=== PATIENT | female | born 1970 | race African-American/Black ===

== ENCOUNTER 2023-10-21 15:02 | Emergency (ER) | payer OTHER, SELFPAY ==
--- NOTE | ~2023-10-21 | CT_ITS ---
EXAMINATION: CT brain wo con DATE: 10/22/2023 11:56 INDICATION: Altered mental status. TECHNIQUE: Computed tomography (CT) of the head was performed without intravenous contrast. The mA wa s adjusted according to patient size. Iterative reconstruction technique was employed. The dose-lengt h product was 605.33 mGy-cm. COMPARISON: None FINDINGS: There is no intracranial hemorrhage, acute infarction, or abnormal intracranial mass lesion . The ventricles are normal in size. The paranasal sinuses are clear. The mastoid air cells are paxton l. The orbits are normal. IMPRESSION: 1. Normal brain. Reviewed, dictated and finalized at location A. IMPRESSION: 1. Normal brain.
[2023-10-21 15:03] VITALS: TEMP 36.8
[2023-10-21 15:18] VITALS: BP 135/92; PULSE 63; RESP 18; TEMP 36.7; O2SAT 98
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
[2023-10-21 15:50] LABS: Basophils Absolute Auto 0.1 K/mm3 (0.0-0.1); Basophils Percent Auto 0.5 % (0.2-1.2); Hematocrit 41.4 % (37.0-47.0); Hemoglobin 13.1 g/dL (12.0-15.0); Immature Granulocyte Absolute 0.03 K/mm3 (0.00-0.031); Immature Granulocyte Percent A 0.3 % (0-0.5); Lymphocytes Absolute Auto 1.97 K/mm3 (0.9-3.2); Lymphocytes Percent Auto 18.3 % (18.3-44.2); Mean Corpuscular HGB Conc 31.6 g/dl (32-36); Mean Corpuscular Hemoglobin 24.1 pg (26-34); Mean Corpuscular Volume 76.1 fl (80-100); Mean Platelet Volume 9.3 fl (7.4-10.4); Monocytes Absolute Auto 1.7 K/mm3 (0.1-0.6); Neutrophils Percent Auto 64.9 % (45.5-73.1); Platelet Count Result 453 k/mm3 (150-375); Red Blood Count 5.44 M/mm3 (4.2-5.4); Red Cell Distribution Width 16.3 % (11.5-14.5); White Blood Count 10.8 K/mm3 (4.5-10.0)
--- NOTE | 2023-10-21 15:56 | PC.NURSE ---
Patient noted to be coming to the doorway of room one and cautiously looking both ways down the hallway. patient denies needing anything when asked.
[2023-10-21 16:00] LABS: Ethanol < 10 mg/dL (<10)
[2023-10-21 16:09] LABS: Alanine Aminotransferase 28 U/L (6-35); Albumin Level 4.6 g/dL (3.5-5.1); Alkaline Phosphatase 100 U/L (38-126); Anion Gap 8 mmol/L (4-12); Aspartate Amino Transferase 74 U/L (14-36); Bilirubin,Total 0.7 mg/dL (0.2-1.3); Blood Urea Nitrogen 11 mg/dL (7-17); Calcium 9.6 mg/dL (8.4-10.2); Carbon Dioxide 22 mmol/L (22-30); Chloride 106 mmol/L (98-107); Estimated CRCL calculation 83 ml/min; Estimated Glomerular Filt Rate > 60; Glucose 116 mg/dL (65-110); Potassium 3.7 mmol/L (3.4-5.0); Sodium 136 mmol/L (137-145)
[2023-10-21 18:07] LABS: Appearance Urine Turbid (Clear); Bacteria Urine 4+ /hpf; Bilirubin Urine Negative (Negative); Blood Urine Negative (Negative); Color Urine Yellow (Yellow); Glucose Urine UA Negative (Negative); Ketones Urine 1+ mg/dL (Negative); Leukocyte Esterase Ur Negative LEU/UL (Negative); Need Manual Microscopic Reviewed; Nitrate Urine Negative (Negative); Non Pathogenic Casts 0-2; Protein Urine Trace mg/dL (Negative); Specific Grav Ur 1.022 (1.001-1.035); Squamous Epithelial Cell Urine Many /hpf (Few); pH Urine 5.5 (5.0-9.0)
[2023-10-21 18:08] LABS: Add Urine Microscopic? YES
[2023-10-21 18:09] LABS: Amphetamine Screen Urine Negative (Negative); Barbiturate Screen Urine Negative (Negative); Benzodiazepines Screen Urine Negative (Negative); Cannabinoid Screen Urine Negative (Negative); Cocaine Screen Urine Negative (Negative); Methadone Screen Urine Negative (Negative); Opiate Screen Urine Negative (Negative); Phencyclidine Screen Urine Negative (Negative)
[2023-10-21 22:13] LABS: Influenza A QL RT-PCR Negative (Negative); Influenza B QL RT-PCR Negative (Negative); SARS-CoV-2 RNA PCR Negative (Negative)
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
[2023-10-21 23:34] VITALS: BP 109/69; PULSE 105; RESP 20; O2SAT 100
[2023-10-21] MEDS: CEPHALEXIN 500 MG CAPSULE PO (23:36)
--- NOTE | 2023-10-21 23:42 | PC.NURSE ---
Report received from DERIC Pinto. Assumed care of patient at this time. Patient has security outside of room. Patient agreeable to VS and abx at this time. Patient requested to have lights dimmed. Patient cooperative at this time. Patient denies any SI/HI.
--- NOTE | 2023-10-22 00:05 | PC.NURSE ---
0002 Jonathan, from [facility] calls to state to call patients insurance company at [phone]. 0002 Yessenia, from [facility] calls to state she needs a preg test,toxicity levels such as tylenol level and ASA levels on patient and a medically cleared statement from [facility] and faxed to [phone]. [facility] and lean consultant notified.
--- NOTE | 2023-10-22 00:12 | PC.NURSE ---
Called lab to see if can add on ordered lab tests. Spoke to Jhoana, she stated she will attempt to add on the orders.
--- NOTE | 2023-10-22 02:50 | PC.NURSE ---
0210 Patient awake in room and this RN and electrical troubleshooter went to speak with patient. Patient moved to room 9 and changed into green scrubs. Patient denies any SI/HI. Patient cooperative with changing into green scrubs, and moving to room 9. Patient given wash cloths, deodorant, and toothbrush and toothpaste to wash up and perform hygiene. Patient sitter still at bedside for safety and elopement risk.
[2023-10-22 02:53] LABS: Acetaminophen < 10 ug/mL (10-30); Salicylate < 1.0 mg/dL (2-20)
[2023-10-22 03:19] LABS: Pregnancy On Board Control Positive; Urine Pregnancy Test Negative
--- NOTE | 2023-10-22 03:44 | PC.NURSE ---
Patients chart faxed to Yessenia at [facility] intake, faxed to [phone].
--- NOTE | 2023-10-22 04:32 | PC.NURSE ---
0429 Yessenia from [facility] intake calls to state that she received patients chart. Yessenia states she will speak with a provider and call back.
--- NOTE | 2023-10-22 04:47 | PC.NURSE ---
8461 Yessenia with [facility] intake calls to state we are at capacity at this time, but if you don't hear from us by 1000, give us a call back and we can maybe get her a bed after we get discharges in the morning. Phone number to call is [phone]. net technical architect notified and aware.
--- NOTE | 2023-10-22 04:54 | PC.NURSE ---
0451 [facility] intake calls to state the patient is deflected or declined due to involuntary status.
--- NOTE | 2023-10-22 05:46 | PC.NURSE ---
Patient resting comfortably on stretcher with eyes closed. Visible chest rise and fall, no distress noted. Patient has lights dimmed, blanket and has sitter/security at bedside for safety/elopement risk.
--- NOTE | 2023-10-22 05:49 | PC.NURSE ---
0288 Fatmata with [facility] calls to get update on possible placement/acceptance of patient to facility. This RN informed Fatmata that [facility] declined due to patient being involuntary, [facility] requested her insurance be approved first, and [facility] to be called at 1000 if they don't call first for possible bed placement.
[2023-10-22 07:43] VITALS: BP 140/87; PULSE 99; RESP 18; O2SAT 100
--- NOTE | 2023-10-22 11:06 | PC.NURSE ---
assumed care of pt from dmitriy hernandez. pt resting on stretcher, requesting to take shower. pt updated on plan of care, denies questions/concerns at this time
--- NOTE | 2023-10-22 11:35 | PCCCNOTE ---
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 I call [facility] at [phone] to get auth for inpt treatment at a psych facility. [facility] provides a bed search for eligible facility in area. Information that was provided was pt info including name, , dx,etc. The attending physician is Herbie Canales MD NPI# [id number]. A pending auth # of [id number] was provided. [facility] uses [facility] to provide mental health auths and services. A bed search is started for area at and around [place] [id number]. The rep indicated that the search would include availability of the bed. The search could take up to a day. [facility] phone# [phone] and follow prompts to get updates
--- NOTE | 2023-10-22 12:17 | PC.NURSE ---
pt assisted to room 222 for shower by cut off machine unloader and security
--- NOTE | 2023-10-22 12:28 | PC.NURSE ---
spoke with Kaley Maurer, states she will contact on-call provider and call us back
--- NOTE | 2023-10-22 12:31 | PC.NURSE ---
pt returned from shower, escorted by security and supervisor dials
[2023-10-22 13:05] VITALS: BP 127/82; PULSE 82; RESP 16; TEMP 36.2; O2SAT 100
--- NOTE | 2023-10-22 15:16 | PC.NURSE ---
report called to DERIC Howard at [facility]. Anita states they still need to get room ready, will call. estimated between [phone].
--- NOTE | 2023-10-22 15:50 | PCCCNOTE ---
Chava called back and would like contact center manager for [facility]. [facility] called at [phone] and asked to speak with older adult social work specialist. Informed not available at present and would call back. Number for direct call to [facility] [place] not operational.
[2023-10-22 16:16] VITALS: BP 130/79; PULSE 87; RESP 16; TEMP 36.6; O2SAT 100
[2023-10-22] MEDS: CEPHALEXIN 500 MG CAPSULE PO (18:18)
[2023-10-22 18:43] VITALS: BP 127/70; PULSE 71; RESP 16; TEMP 36.4; O2SAT 10
== END 2023-10-22 18:46 ==
PROVIDERS: Physician Assistant; Emergency Provider Emergency Medicine
DX: F22 Delusional disorders (principal); R82.998 Other abnormal findings in urine; Z20.822 Contact with and (suspected) exposure to COVID-19
CPT/HCPCS: 36415; 70450; 80053; 80307; 81001; 81025; 84443; 85025; 87086; 87088; 87636; 99285; A9270